=== PATIENT | female | born 1975 | race Asian ===

== ENCOUNTER → 2019-05-19 | Outpatient (CLI) | payer OTHER ==
[~2019-05-19] MED LIST: ANALPRAM-HC 2.530 GM; IBUPROFEN 400400 M1; LANOLIN56 GM; PRENATAL; TRIPLE NIPPLE; TUCKS MEDICATE1 EAC1
== END ==
LOC: ULTRA 13:47
DX: C50.011 Malignant neoplasm of nipple and areola, right female breast (principal)

== ENCOUNTER → 2021-02-22 | Outpatient (CLI) | payer OTHER | LOC: CAT 08:41 | PROVIDERS: ATTEND Family Medicine | DX: Z13.6 Encounter for screening for cardiovascular disorders (principal) ==